=== PATIENT | male | born 1950 | race Caucasian/White ===

== ENCOUNTER 2019-09-14 09:48 | Inpatient (IN) ==
[2019-09-14] MEDS ORDERED: metroNIDAZOLE INJ 500 MG in PREMIX 1 EACH IV STA (10:14)
[2019-09-14] MEDS ORDERED: SODIUM CHLORIDE 0.9% 1,000 ML IV STA ×2 (10:14→11:55)
[2019-09-14] MEDS ORDERED: ONDANSETRON 4 MG/2 ML VIAL IV STA (10:14)
[2019-09-14] MEDS ORDERED: cefTRIAXone 2,000 MG in SODIUM CHLORIDE 0.9% 100 ML IV STA (10:14)
[2019-09-14 10:59] LABS: Basophils % 0.1 % (0.0-0.8); Hematocrit 32.9 VOL% (42.0-52.0); Hemoglobin 10.7 GM/DL (14.0-18.0); Immature Granulocytes % 0.7 %; Immature Granulocytes Absolute 0.15 #; Lymphocytes # 0.4 10*3/uL (1.4-4.0); Lymphocytes % 2.1 % (21.2-54.2); Mean Corpuscular HGB Conc 32.5 GM/DL (32-36); Mean Corpuscular Volume 98.2 FL (87-102); Monocytes % 3.4 % (1.7-12.7); NRBC # 0.03 10*3/uL; Neutrophils % 93.7 % (38.7-73.9); Platelet Count 290 T/CUMM (130-400); Red Blood Count 3.35 MC/CUMM (3.8-5.5); Red Cell Distribution Width 16.3 % (9.3-17.3); White Blood Count 21.3 T/CUMM (4-12)
[2019-09-14 11:10] LABS: INR 1.1; PT Patient Result 11.7 SECS (9.8-11.9); Partial Thromboplastin Time 25.6 SECS (23.9-33.8)
[2019-09-14 11:26] LABS: Alanine Aminotransferase 22 U/L (16-61); Albumin 3.5 G/DL (3.4-5.0); Alkaline Phosphatase 79 U/L (45-117); Amylase 92 U/L (25-115); Aspartate Amino Transferase 21 U/L (0-37); Blood Urea Nitrogen 40 MG/DL (7-18); Calcium 8.2 MG/DL (8.5-10.1); Estimated Glom Filtration Rate 26 ML/MIN; Ferritin 64.2 ng/ml (26-388); Glucose 120 MG/DL (74-106); Osmolality,Calculated 280.1 MOS/KG (273-304); Total Protein 7.7 G/DL (6.4-8.3)
[2019-09-14 12:01] LABS: Lymphocytes 4 % (20-55); Segmented Neutrophils 92 % (50-85); Total Cells Counted 100
[2019-09-14 12:03] LABS: Burr Cells 1+; Platelet Estimate Normal; Polychromasia Slight
[2019-09-14 12:05] LABS: Basophilic Stippling Slight; Reactive Lymphocytes Slight
[2019-09-14] MEDS ORDERED: ONDANSETRON 4 MG/2 ML VIAL IV PRN (12:11)
[2019-09-14] MEDS ORDERED: GLUCAGON 1 MG VIAL IM PRN (12:11)
[2019-09-14] MEDS ORDERED: DEXTROSE 50% 25 GM/50 ML VIAL IV PRN (12:11)
[2019-09-14] MEDS ORDERED: NITROGLYCERIN SL 0.4 MG TABLET SL PRN (12:19)
[2019-09-14] MEDS: ENOXAPARIN 30 MG/0.3 ML SYRINGE SUBCUT SCH (14:41)
[2019-09-14] MEDS: PANTOPRAZOLE 40 MG VIAL IV SCH (14:41)
[2019-09-14] MEDS: MEROPENEM 500 MG in SODIUM CHLORIDE 0.9% 100 ML IV SCH ×2 (15:33→20:36)
[2019-09-14] MEDS: INSULIN NPH 100 UNIT/ML SUBCUT SCH (16:26)
[2019-09-14] MEDS: POTASSIUM CHLORIDE INJ 30 MEQ in SODIUM CHLORIDE 0.9% 1,000 ML IV SCH (16:54)
[2019-09-14] MEDS: INSULIN REGULAR 100 UNIT/ML SUBCUT SCH (17:09)
[2019-09-15] MEDS: INSULIN REGULAR 100 UNIT/ML SUBCUT SCH ×4 (00:32→17:28)
[2019-09-15 00:47] LABS: Apearance,Urine CLEAR (Clear); Bilirubin,Urine Negative (Negative); Blood, Urine Negative (Negative); Glucose,Urine (UA) Negative (Negative); Hyaline Casts,Urine 60 /LPF (0-3); Ketones,Urine Negative (Negative); Mucus,Urine Occasional /LPF (Occasional); Nitrite,Urine Negative (Negative); Protein,Urine Negative; RBC,Urine 3 /HPF (0-4); Squamous Epithelial Cell,Urine Occasional /HPF (0-10); Urine Color Amber (Yellow); Urine Urobilinogen < 2.0 EU/DL (0.2-1.0); WBC,Urine 2 /HPF (0-6)
[2019-09-15] MEDS: POTASSIUM CHLORIDE INJ 30 MEQ in SODIUM CHLORIDE 0.9% 1,000 ML IV SCH (03:51)
[2019-09-15] MEDS: MEROPENEM 500 MG in SODIUM CHLORIDE 0.9% 100 ML IV SCH ×3 (03:52→20:53)
[2019-09-15 05:26] LABS: Basophils % 0.2 % (0.0-0.8); Eosinophils % 0.1 % (0.00-10.9); Hemoglobin 9.2 GM/DL (14.0-18.0); Immature Granulocytes % 1.2 %; Immature Granulocytes Absolute 0.27 #; Lymphocytes # 1.8 10*3/uL (1.4-4.0); Mean Corpuscular HGB Conc 32.9 GM/DL (32-36); Mean Corpuscular Volume 98.6 FL (87-102); Mean Platelet Volume 10.2 FL (9.6-12.0); Monocytes % 4.5 % (1.7-12.7); Platelet Count 254 T/CUMM (130-400); Red Blood Count 2.84 MC/CUMM (3.8-5.5); Red Cell Distribution Width 16.5 % (9.3-17.3); White Blood Count 22.9 T/CUMM (4-12)
[2019-09-15 05:45] LABS: Hypochromasia 1+
[2019-09-15 05:46] LABS: Acanthocytes Few; Anisocytosis 1+; Microcytosis 1+; Ovalocytes Slight
[2019-09-15 05:47] LABS: Platelet Estimate Normal
[2019-09-15 06:34] LABS: Albumin 2.9 G/DL (3.4-5.0); Bilirubin,Total 1.2 MG/DL (0.2-1.0); Calcium 7.4 MG/DL (8.5-10.1); Osmolality,Calculated 289.4 MOS/KG (273-304); Total Protein 6.2 G/DL (6.4-8.3)
[2019-09-15] MEDS: INSULIN NPH 100 UNIT/ML SUBCUT SCH ×2 (09:03→16:52)
[2019-09-15] MEDS: SODIUM CHLORIDE 0.9% 1,000 ML IV SCH ×2 (09:05→19:15)
[2019-09-15] MEDS: PANTOPRAZOLE 40 MG VIAL IV SCH (09:06)
[2019-09-15] MEDS: METOPROLOL TARTRATE 50 MG TABLET PO SCH ×2 (09:06→20:53)
[2019-09-15] MEDS: ENOXAPARIN 30 MG/0.3 ML SYRINGE SUBCUT SCH (12:26)
[2019-09-16] MEDS: INSULIN REGULAR 100 UNIT/ML SUBCUT SCH ×4 (01:23→17:53)
[2019-09-16] MEDS: SODIUM CHLORIDE 0.9% 1,000 ML IV SCH ×2 (04:51→17:58)
[2019-09-16] MEDS: MEROPENEM 500 MG in SODIUM CHLORIDE 0.9% 100 ML IV SCH ×3 (04:52→20:57)
[2019-09-16 05:39] LABS: Basophils % 0.2 % (0.0-0.8); Eosinophils # 0.1 10*3/uL (0.0-0.87); Eosinophils % 0.4 % (0.00-10.9); Hematocrit 28.1 VOL% (42.0-52.0); Hemoglobin 9.1 GM/DL (14.0-18.0); Immature Granulocytes % 1.2 %; Immature Granulocytes Absolute 0.18 #; Lymphocytes # 1.4 10*3/uL (1.4-4.0); Lymphocytes % 9.1 % (21.2-54.2); Mean Corpuscular HGB Conc 32.4 GM/DL (32-36); Mean Corpuscular Volume 98.6 FL (87-102); Mean Platelet Volume 10.4 FL (9.6-12.0); Monocytes % 4.3 % (1.7-12.7); Neutrophils % 84.8 % (38.7-73.9); Platelet Count 234 T/CUMM (130-400); Red Blood Count 2.85 MC/CUMM (3.8-5.5); Red Cell Distribution Width 16.7 % (9.3-17.3); White Blood Count 15.5 T/CUMM (4-12)
[2019-09-16 05:44] LABS: Calcium 7.8 MG/DL (8.5-10.1); Osmolality,Calculated 285.5 MOS/KG (273-304)
[2019-09-16] MEDS: INSULIN NPH 100 UNIT/ML SUBCUT SCH ×2 (09:01→16:48)
[2019-09-16] MEDS: METOPROLOL TARTRATE 50 MG TABLET PO SCH ×2 (09:02→20:57)
[2019-09-16] MEDS: PANTOPRAZOLE 40 MG VIAL IV SCH (09:02)
[2019-09-16] MEDS: ENOXAPARIN 40 MG/0.4 ML SYRINGE SUBCUT SCH (11:49)
[2019-09-16] MEDS: MORPHINE 4 MG/1 ML VIAL IV PRN ×2 (17:57→20:57)
[2019-09-17] MEDS: INSULIN REGULAR 100 UNIT/ML SUBCUT SCH ×4 (00:48→17:32)
[2019-09-17] MEDS: SODIUM CHLORIDE 0.9% 1,000 ML IV SCH ×2 (02:15→10:43)
[2019-09-17] MEDS: MEROPENEM 500 MG in SODIUM CHLORIDE 0.9% 100 ML IV SCH ×3 (03:54→21:50)
[2019-09-17] MEDS: PANTOPRAZOLE 40 MG VIAL IV SCH (08:55)
[2019-09-17] MEDS: METOPROLOL TARTRATE 50 MG TABLET PO SCH ×2 (08:55→21:50)
[2019-09-17] MEDS: INSULIN NPH 100 UNIT/ML SUBCUT SCH ×2 (09:00→17:32)
[2019-09-17 09:28] LABS: Basophils % 0.2 % (0.0-0.8); Eosinophils % 0.2 % (0.00-10.9); Hematocrit 28.6 VOL% (42.0-52.0); Hemoglobin 9.2 GM/DL (14.0-18.0); Immature Granulocytes % 1.3 %; Immature Granulocytes Absolute 0.13 #; Lymphocytes % 9.3 % (21.2-54.2); Mean Corpuscular HGB Conc 32.2 GM/DL (32-36); Mean Platelet Volume 10.3 FL (9.6-12.0); Monocytes % 7.3 % (1.7-12.7); NRBC # 0.02 10*3/uL; Neutrophils % 81.7 % (38.7-73.9); Platelet Count 248 T/CUMM (130-400); Red Blood Count 2.89 MC/CUMM (3.8-5.5); Red Cell Distribution Width 16.8 % (9.3-17.3); White Blood Count 10.4 T/CUMM (4-12)
[2019-09-17 09:53] LABS: Calcium 8.5 MG/DL (8.5-10.1); Osmolality,Calculated 284.7 MOS/KG (273-304)
[2019-09-17] MEDS: ENOXAPARIN 40 MG/0.4 ML SYRINGE SUBCUT SCH (12:28)
[2019-09-18] MEDS: INSULIN REGULAR 100 UNIT/ML SUBCUT SCH ×4 (01:29→17:20)
[2019-09-18] MEDS: MEROPENEM 500 MG in SODIUM CHLORIDE 0.9% 100 ML IV SCH (05:58)
[2019-09-18 07:47] LABS: Basophils % 0.4 % (0.0-0.8); Eosinophils # 0.2 10*3/uL (0.0-0.87); Eosinophils % 1.7 % (0.00-10.9); Hematocrit 30.2 VOL% (42.0-52.0); Hemoglobin 9.5 GM/DL (14.0-18.0); Immature Granulocytes % 1.6 %; Immature Granulocytes Absolute 0.15 #; Lymphocytes # 1.3 10*3/uL (1.4-4.0); Lymphocytes % 13.3 % (21.2-54.2); Mean Corpuscular HGB Conc 31.5 GM/DL (32-36); Mean Corpuscular Volume 100.3 FL (87-102); Mean Platelet Volume 10.6 FL (9.6-12.0); Monocytes % 7.4 % (1.7-12.7); NRBC # 0.03 10*3/uL; Neutrophils % 75.6 % (38.7-73.9); Platelet Count 307 T/CUMM (130-400); Red Blood Count 3.01 MC/CUMM (3.8-5.5); Red Cell Distribution Width 16.4 % (9.3-17.3); White Blood Count 9.6 T/CUMM (4-12)
[2019-09-18 08:16] LABS: Calcium 8.6 MG/DL (8.5-10.1); Osmolality,Calculated 288.4 MOS/KG (273-304)
[2019-09-18] MEDS: PANTOPRAZOLE 40 MG VIAL IV SCH (08:16)
[2019-09-18] MEDS: INSULIN NPH 100 UNIT/ML SUBCUT SCH ×2 (09:45→17:23)
[2019-09-18] MEDS: METOPROLOL TARTRATE 50 MG TABLET PO SCH ×2 (09:45→20:29)
[2019-09-18] MEDS: ENOXAPARIN 40 MG/0.4 ML SYRINGE SUBCUT SCH (11:59)
[2019-09-18] MEDS: ERTAPENEM 1,000 MG in SODIUM CHLORIDE 0.9% 100 ML IV SCH (14:13)
[2019-09-18] MEDS ORDERED: hydrALAZINE 25 MG TABLET PO SCH (15:00)
[2019-09-18] MEDS: ISOSORBIDE DINITRATE 10 MG TABLET PO SCH ×2 (15:55→20:29)
[2019-09-18] MEDS: TEMAZEPAM 15 MG CAPSULE PO PRN (20:29)
[2019-09-18] MEDS: hydrALAZINE 25 MG TABLET PO SCH (20:29)
[2019-09-18] MEDS: TAMSULOSIN 0.4 MG CAPSULE PO SCH (20:29)
[2019-09-18] MEDS ORDERED: FUROSEMIDE 40 MG/4 ML VIAL IV ONE (23:22)
[2019-09-19] MEDS: INSULIN REGULAR 100 UNIT/ML SUBCUT SCH ×4 (00:37→17:02)
[2019-09-19 06:34] LABS: Basophils % 0.5 % (0.0-0.8); Eosinophils # 0.3 10*3/uL (0.0-0.87); Hematocrit 27.7 VOL% (42.0-52.0); Hemoglobin 8.9 GM/DL (14.0-18.0); Immature Granulocytes % 1.9 %; Immature Granulocytes Absolute 0.16 #; Lymphocytes # 1.6 10*3/uL (1.4-4.0); Lymphocytes % 18.9 % (21.2-54.2); Mean Corpuscular HGB Conc 32.1 GM/DL (32-36); Mean Corpuscular Volume 98.9 FL (87-102); Mean Platelet Volume 10.2 FL (9.6-12.0); Monocytes % 9.2 % (1.7-12.7); NRBC # 0.03 10*3/uL; Neutrophils % 66.5 % (38.7-73.9); Platelet Count 303 T/CUMM (130-400); Red Cell Distribution Width 16.2 % (9.3-17.3); White Blood Count 8.2 T/CUMM (4-12)
[2019-09-19 06:54] LABS: Calcium 8.4 MG/DL (8.5-10.1); Osmolality,Calculated 287.4 MOS/KG (273-304)
[2019-09-19] MEDS: INSULIN NPH 100 UNIT/ML SUBCUT SCH ×2 (08:41→15:59)
[2019-09-19] MEDS: PANTOPRAZOLE 40 MG VIAL IV SCH (08:42)
[2019-09-19] MEDS: METOPROLOL TARTRATE 50 MG TABLET PO SCH ×2 (08:42→21:23)
[2019-09-19] MEDS: hydrALAZINE 25 MG TABLET PO SCH ×3 (08:42→21:23)
[2019-09-19] MEDS: ISOSORBIDE DINITRATE 10 MG TABLET PO SCH ×3 (08:42→21:23)
[2019-09-19] MEDS: ASPIRIN EC 81 MG TABLET PO SCH (08:42)
[2019-09-19] MEDS: FINASTERIDE 5 MG TABLET PO SCH (08:42)
[2019-09-19] MEDS: TAMSULOSIN 0.4 MG CAPSULE PO SCH ×2 (08:42→21:23)
[2019-09-19] MEDS ORDERED: METOPROLOL SUCCINATE XL 100 MG TABLET PO SCH (09:00)
[2019-09-19] MEDS: ERTAPENEM 1,000 MG in SODIUM CHLORIDE 0.9% 100 ML IV SCH (12:15)
[2019-09-19] MEDS: ENOXAPARIN 40 MG/0.4 ML SYRINGE SUBCUT SCH (12:16)
[2019-09-19] MEDS: DIGOXIN 0.25 MG TABLET PO SCH (12:16)
[2019-09-20] MEDS: INSULIN REGULAR 100 UNIT/ML SUBCUT SCH ×4 (00:04→18:19)
[2019-09-20] MEDS: TEMAZEPAM 15 MG CAPSULE PO PRN ×2 (01:29→21:58)
[2019-09-20] MEDS: FINASTERIDE 5 MG TABLET PO SCH (09:16)
[2019-09-20] MEDS: ASPIRIN EC 81 MG TABLET PO SCH (09:16)
[2019-09-20] MEDS: METOPROLOL TARTRATE 50 MG TABLET PO SCH ×2 (09:16→21:59)
[2019-09-20] MEDS: hydrALAZINE 25 MG TABLET PO SCH ×3 (09:16→21:59)
[2019-09-20] MEDS: PANTOPRAZOLE 40 MG VIAL IV SCH (09:17)
[2019-09-20] MEDS: TAMSULOSIN 0.4 MG CAPSULE PO SCH ×2 (09:17→21:59)
[2019-09-20] MEDS: INSULIN NPH 100 UNIT/ML SUBCUT SCH ×2 (09:17→17:23)
[2019-09-20] MEDS: ISOSORBIDE DINITRATE 10 MG TABLET PO SCH ×3 (09:22→21:58)
[2019-09-20 09:25] LABS: Basophils % 0.5 % (0.0-0.8); Eosinophils # 0.2 10*3/uL (0.0-0.87); Eosinophils % 2.7 % (0.00-10.9); Hematocrit 28.5 VOL% (42.0-52.0); Hemoglobin 9.1 GM/DL (14.0-18.0); Immature Granulocytes % 2.1 %; Immature Granulocytes Absolute 0.13 #; Lymphocytes # 1.3 10*3/uL (1.4-4.0); Mean Corpuscular HGB Conc 31.9 GM/DL (32-36); Mean Corpuscular Volume 99.3 FL (87-102); Mean Platelet Volume 9.8 FL (9.6-12.0); Monocytes % 8.9 % (1.7-12.7); NRBC # 0.02 10*3/uL; Neutrophils % 64.8 % (38.7-73.9); Platelet Count 292 T/CUMM (130-400); Red Blood Count 2.87 MC/CUMM (3.8-5.5); Red Cell Distribution Width 16.1 % (9.3-17.3); White Blood Count 6.3 T/CUMM (4-12)
[2019-09-20 09:35] LABS: INR 1.1; PT Patient Result 11.4 SECS (9.8-11.9)
[2019-09-20] MEDS: ERTAPENEM 1,000 MG in SODIUM CHLORIDE 0.9% 100 ML IV SCH (12:06)
[2019-09-20] MEDS: DIGOXIN 0.25 MG TABLET PO SCH (12:09)
[2019-09-20] MEDS: ENOXAPARIN 40 MG/0.4 ML SYRINGE SUBCUT SCH (12:09)
[2019-09-20] MEDS ORDERED: WARFARIN 5 MG TABLET PO SCH (18:00)
[2019-09-20] MEDS: metroNIDAZOLE 500 MG TABLET PO SCH (21:59)
[2019-09-21] MEDS: INSULIN REGULAR 100 UNIT/ML SUBCUT SCH ×3 (01:29→14:13)
[2019-09-21 05:31] LABS: Basophils % 0.6 % (0.0-0.8); Eosinophils # 0.2 10*3/uL (0.0-0.87); Eosinophils % 3.5 % (0.00-10.9); Hematocrit 28.5 VOL% (42.0-52.0); Hemoglobin 9.2 GM/DL (14.0-18.0); Immature Granulocytes % 2.2 %; Immature Granulocytes Absolute 0.14 #; Lymphocytes # 1.5 10*3/uL (1.4-4.0); Lymphocytes % 24.5 % (21.2-54.2); Mean Corpuscular HGB Conc 32.3 GM/DL (32-36); Mean Corpuscular Volume 96.9 FL (87-102); Mean Platelet Volume 10.1 FL (9.6-12.0); Monocytes % 8.3 % (1.7-12.7); NRBC # 0.02 10*3/uL; Neutrophils % 60.9 % (38.7-73.9); Platelet Count 302 T/CUMM (130-400); Red Blood Count 2.94 MC/CUMM (3.8-5.5); Red Cell Distribution Width 16.1 % (9.3-17.3); White Blood Count 6.2 T/CUMM (4-12)
[2019-09-21 05:40] LABS: INR 1.1; PT Patient Result 11.3 SECS (9.8-11.9)
[2019-09-21 05:50] LABS: Hypochromasia Slight; Ovalocytes Slight; Platelet Estimate Adequate
[2019-09-21 05:51] LABS: Microcytosis Slight
[2019-09-21] MEDS: hydrALAZINE 25 MG TABLET PO SCH (08:52)
[2019-09-21] MEDS: METOPROLOL TARTRATE 50 MG TABLET PO SCH (08:52)
[2019-09-21] MEDS: TAMSULOSIN 0.4 MG CAPSULE PO SCH (08:52)
[2019-09-21] MEDS: INSULIN NPH 100 UNIT/ML SUBCUT SCH (08:53)
[2019-09-21] MEDS: ISOSORBIDE DINITRATE 10 MG TABLET PO SCH (08:53)
[2019-09-21] MEDS: metroNIDAZOLE 500 MG TABLET PO SCH (08:53)
[2019-09-21] MEDS: PANTOPRAZOLE 40 MG VIAL IV SCH (08:53)
[2019-09-21] MEDS: ASPIRIN EC 81 MG TABLET PO SCH (08:53)
[2019-09-21] MEDS: FINASTERIDE 5 MG TABLET PO SCH (08:54)
[2019-09-21] MEDS ORDERED: FUROSEMIDE 40 MG/4 ML VIAL IV ONE (10:16)
[2019-09-21] MEDS: ERTAPENEM 1,000 MG in SODIUM CHLORIDE 0.9% 100 ML IV SCH (10:47)
[2019-09-21 12:09] VITALS: BP 152/72
[2019-09-21] MEDS: DIGOXIN 0.25 MG TABLET PO SCH (14:13)
[2019-09-21] MEDS: ENOXAPARIN 40 MG/0.4 ML SYRINGE SUBCUT SCH (14:13)
== END 2019-09-21 13:35 | disposition home health service (06) | DRG 393 ==
LOC: N.ED 09:48 → SUATTDRO 12:11 → N.EDINP 12:11 → N.TELEN 13:36
PROVIDERS: ADMIT Internal Medicine Cardiovascular Disease; ATTEND Internal Medicine